=== PATIENT | female | born 1940 | race Caucasian/White ===

== ENCOUNTER → 2018-07-24 15:26 | Outpatient (CLI) | payer MEDICARE, OTHER, SELFPAY ==
--- NOTE | 2018-07-24 | DI.MRI.S_ITS ---
PROCEDURE: MR LUMBAR SPINE WO CON INDICATIONS: Low back pain TECHNIQUE: Noncontrast sagittal T1 spin echo and T2 fast echo, coronal T2, sagittal STIR, axial T1 and T2 fast spin echo through the lumbar spine. COMPARISON: [facility], CR, XR LUMBAR SPINE 2 OR 3 VIEWS, 07/17/2018, 11:23. FINDINGS: Image quality: Excellent. Alignment and Curvature: 5 lumbar type vertebral bodies are present by plain film. There is severe leftward curvature of the lumbar spine. There is mild, grade 1 anterolisthesis of T12 on L1. There is mild, grade 1 retrolisthesis of L1 on L2 and L2 on L3. Mild grade 1 anterolisthesis of L3 on L4. Mild focal kyphosis at L1. Bone Marrow: Marrow is of normal overall signal. No acute vertebral body compression fractures. Severe chronic wedging of L1 is present. There is mild reactive signal within the endplates adjacent to the T12-L1, L1-L2, L2-L3, L3-L4, and L5-S1 intervertebral discs. Moderate reactive signal within the endplate adjacent to the L4-L5 intervertebral disc. Spinal Cord: Conus medullaris terminates at the lower L2 level. Visualized cord demonstrates normal signal and size. Paraspinous Soft Tissues: No paravertebral masses. A large hiatal hernia is present. T12-L1: Moderate disc height loss and desiccation. Mild diffuse disc bulge. Mild bilateral facet hypertrophy. Mild canal stenosis. Mild bilateral foraminal stenosis. L1-L2: Moderate disc height loss and desiccation. Moderate diffuse disc bulge. Mild bilateral facet hypertrophy. Mild canal stenosis. Mild bilateral foraminal stenosis. L2-L3: Moderate disc height loss and desiccation. Moderate diffuse disc bulge. Right greater than left moderate facet hypertrophy. Mild canal stenosis. Mild left and moderate right foraminal stenosis. L3-L4: Severe disc height loss and desiccation. Moderate diffuse disc bulge with superimposed broad-based right far lateral protrusion. Moderate bilateral facet hypertrophy. Mild epidural lipomatosis. Moderate canal stenosis. Severe right and mild left foraminal stenosis. Flattening deformity of the right L3 nerve root within the neural foramen. L4-L5: Severe disc height loss and desiccation. Mild diffuse disc bulge with superimposed right far lateral protrusion. Mild bilateral facet hypertrophy. Mild canal stenosis. Moderate right and mild left foraminal stenosis. L5-S1: Moderate disc height loss S. desiccation. Moderate diffuse disc bulge. Mild bilateral facet hypertrophy. Mild canal stenosis. Mild right and severe left foraminal stenosis with flattening deformity of the left L5 nerve root within the neural foramen. IMPRESSION: 1. Severe leftward curvature of the lumbar spine. Multilevel spondylolisthesis. 2. Severe chronic L1 compression fracture. 3.Multilevel degenerative disc and facet disease, as well as ligamentum flavum hypertrophy and epidural lipomatosis. 4. Multilevel canal stenoses, worse at L3-L4, where there is moderate canal stenosis present. 5. Multilevel foraminal stenoses, worst on the right at L3-L4, and on the left at L5-S1, where there is associated intraforaminal nerve root flattening. Recommend correlation with clinical symptoms to ascertain relevance of these findings. Dictated by: Rey Monzon M.D. on 07/24/2018 at 16:57 Approved by: Rey Monzon M.D. on 07/24/2018 at 17:03
== END ==
PROVIDERS: PCP Family Medicine; Visit Provider Orthopaedic Surgery Orthopaedic Surgery of the Spine
DX: M54.5 Low back pain (principal); M41.26 Other idiopathic scoliosis, lumbar region; M51.36 Other intervertebral disc degeneration, lumbar region; M51.37 Other intervertebral disc degeneration, lumbosacral region; M48.061 Spinal stenosis, lumbar region without neurogenic claudication; M48.07 Spinal stenosis, lumbosacral region; M48.56XA Collapsed vertebra, not elsewhere classified, lumbar region, initial encounter for fracture; K44.9 Diaphragmatic hernia without obstruction or gangrene
CPT/HCPCS: 72148